=== PATIENT | female | born 2000 | race Caucasian/White ===

== ENCOUNTER → 2024-04-01 06:43 | Outpatient (REF) | payer BC, SELFPAY ==
[2024-04-01 07:12] LABS: % Basophils 0.7 % (0-2); % Eosinophils 3.6 % (0-6); % Immature Granulocytes 0.2 % (0-0.5); % Lymphocytes 33.4 % (20.5-51.1); % Monocytes 8.3 % (1.7-9.3); % Neutrophils 53.8 % (42.2-75.2); Absolute Eosinophils 0.2 10^3/uL (0-0.7); Absolute Monocytes 0.5 10^3/uL (0.1-0.6); Absolute Neutrophils 3.3 10^3/uL (1.4-6.5); Hematocrit 41.5 % (37.0-47.0); Hemoglobin 14.2 g/dL (12.0-16.0); Mean Corp Hgb Conc. 34.2 g/dL (33.0-37.0); Mean Corpuscular Volume 87.7 fL (81.0-99.0); Mean Platelet Volume 10.7 fL (7.4-10.4); Nucleated Red Blood Cells % 0 %; Platelet Count 190 10^3/uL (130-400); Red Blood Cell Count 4.73 10^6/uL (4.20-5.40); Red Cell Dist. Width 11.9 % (11.5-14.5)
[2024-04-01 07:43] LABS: ALT (SGPT) 17 U/L (0-35); AST (SGOT) 25 U/L (14-36); Albumin 4.4 g/dl (3.5-5.0); Alkaline Phosphatase 66 U/L (38-126); Blood Urea Nitrogen 13 mg/dl (7-17); Calcium 9.9 mg/dl (8.4-10.2); Carbon Dioxide 25 mmol/L (22-30); Chloride 106 mmol/L (98-107); Glucose 91 mg/dl (70-99); HDL Cholesterol 80 mg/dl; LDL Cholesterol, Calculated 57 mg/dl; Potassium 4.4 mmol/L (3.5-5.1); Sodium 138 mmol/L (135-145); Total Cholesterol 149 mg/dl (50-199); Total Protein 6.9 g/dl (6.3-8.2); Triglyceride 63 mg/dl (10-149); Very Low Density Lipoprotein 12 mg/dl (0-30); eGFR > 60.00
[2024-04-01 08:14] LABS: TSH Reflex To Free T4 1.28 uIU/ml (0.47-4.68)
== END ==
LOC: REG 06:43
PROVIDERS: ATTENDING PHYSICIAN Nurse Practitioner Family
DX: Z00.00 Encounter for general adult medical examination without abnormal findings (principal)
CPT/HCPCS: 36415; 80053; 80061; 84443; 85025

== ENCOUNTER → 2024-06-25 06:26 | Day surgery (SDC) | payer BC, SELFPAY | LOC: GI 06:26 | PROVIDERS: ATTENDING PHYSICIAN Internal Medicine; FAMILY PHYSICIAN Nurse Practitioner Family | DX: Z12.11 Encounter for screening for malignant neoplasm of colon (principal); D12.5 Benign neoplasm of sigmoid colon; R11.2 Nausea with vomiting, unspecified; K44.9 Diaphragmatic hernia without obstruction or gangrene; R11.15 Cyclical vomiting syndrome unrelated to migraine; Z86.010 Personal history of colon polyps | CPT/HCPCS: 45380; 43239; 88305; 88342 ==

== ENCOUNTER → 2024-12-31 09:59 | Outpatient (REF) | payer BC, SELFPAY ==
[2024-12-31 12:17] LABS: Beta HCG Quantitative 3.15 mIU/ml
== END ==
LOC: REG 09:59
PROVIDERS: ATTENDING PHYSICIAN Obstetrics & Gynecology Gynecology; FAMILY PHYSICIAN Nurse Practitioner Family
DX: N91.2 Amenorrhea, unspecified (principal)
CPT/HCPCS: 36415; 84702

== ENCOUNTER → 2025-01-02 07:06 | Outpatient (REF) | payer BC, SELFPAY ==
[2025-01-02 09:26] LABS: Beta HCG Quantitative < 2.39 mIU/ml
== END ==
LOC: REG 07:06
PROVIDERS: ATTENDING PHYSICIAN Obstetrics & Gynecology Gynecology; FAMILY PHYSICIAN Nurse Practitioner Family
DX: N91.2 Amenorrhea, unspecified (principal)
CPT/HCPCS: 36415; 84702

== ENCOUNTER → 2025-03-22 15:38 | Outpatient (REF) | payer BC, SELFPAY ==
[2025-03-22 16:36] LABS: Beta HCG Quantitative 96.43 mIU/ml
== END ==
LOC: REG 15:38
PROVIDERS: ATTENDING PHYSICIAN Obstetrics & Gynecology Gynecology; FAMILY PHYSICIAN Nurse Practitioner Family
DX: O20.0 Threatened abortion (principal)
CPT/HCPCS: 36415; 84702; 86900; 86901

== ENCOUNTER → 2025-03-24 14:44 | Outpatient (REF) | payer BC, SELFPAY ==
[2025-03-24 16:06] LABS: Beta HCG Quantitative 267.38 mIU/ml
== END ==
LOC: REG 14:44
PROVIDERS: ATTENDING PHYSICIAN Obstetrics & Gynecology Gynecology
DX: O20.0 Threatened abortion (principal)
CPT/HCPCS: 36415; 84702

== ENCOUNTER → 2025-03-26 16:55 | Outpatient (REF) | payer BC, SELFPAY ==
[2025-03-26 18:10] LABS: HCG, Serum Qualitative Screen Positive
[2025-03-26 18:55] LABS: Beta HCG Quantitative 776.85 mIU/ml
== END ==
LOC: REG 16:55
PROVIDERS: ATTENDING PHYSICIAN Obstetrics & Gynecology Gynecology; FAMILY PHYSICIAN Nurse Practitioner Family
DX: O20.0 Threatened abortion (principal)
CPT/HCPCS: 36415; 84702; 84703

== ENCOUNTER → 2025-04-01 16:42 | Outpatient (REF) | payer BC, SELFPAY ==
[2025-04-01 18:13] LABS: Beta HCG Quantitative 7165.20 mIU/ml
== END ==
LOC: REG 16:42
PROVIDERS: ATTENDING PHYSICIAN Obstetrics & Gynecology Gynecology; FAMILY PHYSICIAN Nurse Practitioner Family
DX: O02.1 Missed abortion (principal)
CPT/HCPCS: 36415; 84702

== ENCOUNTER → 2025-04-22 09:06 | Outpatient (REF) | payer BC, SELFPAY | LOC: CPAP 09:06 | PROVIDERS: ATTENDING PHYSICIAN Obstetrics & Gynecology | DX: Z34.90 Encounter for supervision of normal pregnancy, unspecified, unspecified trimester (principal); Z11.3 Encounter for screening for infections with a predominantly sexual mode of transmission | CPT/HCPCS: 87491; 87591 ==

== ENCOUNTER → 2025-04-26 16:47 | Outpatient (REF) | payer BC, SELFPAY ==
[2025-04-26 17:12] LABS: Urine Character Clear (Clear)
[2025-04-26 17:15] LABS: Hematocrit 37.5 % (37.0-47.0); Hemoglobin 13.4 g/dL (12.0-16.0); Mean Corp Hgb Conc. 35.7 g/dL (33.0-37.0); Mean Corpuscular Volume 84.1 fL (81.0-99.0); Nucleated Red Blood Cells % 0 %; Platelet Count 216 10^3/uL (130-400); Red Cell Dist. Width 11.7 % (11.5-14.5)
[2025-04-26 18:23] LABS: Hepatitis B Surface Antigen Negative (Negative)
[2025-04-26 18:27] LABS: Beta HCG Quantitative 206700.00 mIU/ml
[2025-04-26 18:41] LABS: Hepatitis C Antibody Negative (Negative)
[2025-04-27 10:16] LABS: Glycohemoglobin (HgbA1c) 5.0 % (4.0-5.6)
[2025-04-27 12:56] LABS: Syphilis/T. pallidum Ab Reflex Negative (Negative)
== END ==
LOC: REG 16:47
PROVIDERS: ATTENDING PHYSICIAN Obstetrics & Gynecology; FAMILY PHYSICIAN Nurse Practitioner Family
DX: Z32.01 Encounter for pregnancy test, result positive (principal)
CPT/HCPCS: 36415; 81003; 83036; 84702; 85025; 86704; 86706; 86762; 86780; 86803; 86850; 86900; 86901; 87086; 87340; 87389

== ENCOUNTER → 2025-05-20 16:38 | Outpatient (REF) | payer SELFPAY | LOC: PNTC 16:38 | PROVIDERS: ATTENDING PHYSICIAN Obstetrics & Gynecology | DX: Z36.89 Encounter for other specified antenatal screening (principal) | CPT/HCPCS: 36415 ==

== ENCOUNTER → 2025-06-30 07:34 | Outpatient (REF) | payer BC, SELFPAY | LOC: OIDL 07:34 | PROVIDERS: ATTENDING PHYSICIAN Student in an Organized Health Care Education/Training Program; FAMILY PHYSICIAN Nurse Practitioner Family | DX: Z34.92 Encounter for supervision of normal pregnancy, unspecified, second trimester (principal) | CPT/HCPCS: 36415; 82105 ==

== ENCOUNTER 2025-07-04 13:47 | Emergency (ER) | payer BC, SELFPAY ==
[2025-07-04 13:52] VITALS: BP 130/71
[2025-07-04 14:08] LABS: Hematocrit 36.0 % (37.0-47.0); Hemoglobin 12.9 g/dL (12.0-16.0); Mean Corp Hgb Conc. 35.8 g/dL (33.0-37.0); Mean Corpuscular Volume 84.3 fL (81.0-99.0); Nucleated Red Blood Cells % 0 %; Platelet Count 181 10^3/uL (130-400); Red Cell Dist. Width 12.5 % (11.5-14.5)
[2025-07-04 14:16] LABS: INR 0.97; PT 13.2 Sec (11.4-14.6)
[2025-07-04 14:26] LABS: ALT (SGPT) 18 U/L (0-35); AST (SGOT) 25 U/L (14-36); Albumin 4.2 g/dl (3.5-5.0); Alkaline Phosphatase 66 U/L (38-126); Blood Urea Nitrogen 11 mg/dl (7-17); Calcium 9.3 mg/dl (8.4-10.2); Carbon Dioxide 24 mmol/L (22-30); Chloride 105 mmol/L (98-107); Glucose 99 mg/dl (70-99); Potassium 3.5 mmol/L (3.5-5.1); Sodium 135 mmol/L (135-145); Total Protein 7.0 g/dl (6.3-8.2); eGFR > 60.00
[2025-07-04 14:39] LABS: Troponin I < 0.012 ng/ml
[2025-07-04 15:50] LABS: D-Dimer 1.12 ug/mlFEU (0.00-0.50)
[2025-07-04 17:43] VITALS: BP 124/80
--- NOTE | 2025-07-04 22:31 | ED.GENMED ---
History of Present Illness
General
Chief Complaint: Chest Pain
Source: patient
Exam Limitations: none
Time Seen by Provider: 07/04/25 14:59
Nursing documentation reviewed up to this point in time: agreed with
History of Present Illness
History of Present Illness:
Patient to ED with complaint of left sided chest pain. Pain started a few days ago but became much worse today. Denies n/v/diaphoresis. No aggravating or alleviating factors. No prior history of same. No leg pain or swelling. SHe is currently
18weeks . Brought to ED by spouse for eval.
Past History
Past History
ED Past Medical History: Psychiatric (Anxiety, depression,) and Other (Positional vertigo)
ED Past Surgical History: Other (Colonoscopy)
Patient has exhibited threatening behavior?: No
Social History
Tobacco: Non-smoker
Alcohol: None
Drug: None
Personal: Single
Living: with family
Employment: Employed (student at [employer])
Family History
Family History: Other ( mother does have a history of migraines); Negative Sudden
Review of Systems
Review of Systems
Allergies reviewed?: Yes
All Other Systems: ROS reviewed and negative except as documented in HPI and ROS
Constitutional: Reports no symptoms
EENT: Reports no symptoms
Respiratory: Reports no symptoms
Cardiac: Reports chest pain (Left sided chest pain)
ABD/GI: Reports no symptoms
: Reports no symptoms
Musculoskeletal: Reports no symptoms
Skin: Reports no symptoms
Neurological: Reports no symptoms
Psychiatric: Reports no symptoms
Phy Exam
General Physical Exam
General Presentation: well appearing and no apparent distress
General age: appears stated age
General Skin: warm and dry
General Habitus: normal
General Mental: alert
Cardiovascular Exam
Cardiovascular Exam: regular rate/rhythm and no edema
Pulmonary Exam
Pulmonary Exam: lungs clear, no respiratory distress and chest non tender
Musculoskeletal Exam
Musculoskeletal Exam: full ROM and neuro vasc intact
Skin Exam
Skin Exam: normal color, warm/dry and no rash
Psychiatric Exam
Psychiatric Exam: normal mood/affect
Scores
Heart Score for Chest Pain Patients
STEMI patient?: No
History: Slightly or Non-Suspicious
ECG: Normal
Age: </= 45 years
Risk Factors: No Risk Factors
Troponin: </= Normal Limit
Heart Score for Chest Pain Patients: 0
Heart Score Risk: 2.5% MACE over next 6 weeks
Course
Orders/Labs/Results
Orders:
Orders
07/04/25 13:49
Electrocardiogram (*1) Urgent
Reason for Study: Chest Pain
EKG- Treatment ONCE
07/04/25 13:58
Complete Blood Count/With Diff Urgent
Comprehensive Metabolic Panel Urgent
D-Dimer Urgent
Comment: ADD ON
Prothrombin Time Urgent
TSH Reflex To Free T4 Urgent
Troponin I Urgent
07/04/25 15:00
Add On- LAB Urgent
Tests Added?: ddimer
07/04/25 16:23
CT Chest PE Study Urgent
Comment:
Reason For Exam: left chest pain, elevated ddimer,
Abnormal Lab Results
07/04/25
13:58
WBC 11.3 H 10^3/uL
(4.8-10.8)
Hct 36.0 L %
(37.0-47.0)
MPV 10.5 H fL
(7.4-10.4)
Absolute Neuts (auto) 8.7 H 10^3/uL
(1.4-6.5)
Neutrophils % 77.0 H %
(42.2-75.2)
Lymphocytes % 17.0 L %
(20.5-51.1)
D-Dimer 1.12 H ug/mlFEU
(0.00-0.50)
07/04/25 13:58
07/04/25 13:58
Vital Signs
Initial and Last Documented VS:
Initial Vital Signs
Temp Pulse Resp BP Pulse Ox
98.6 F 79 17 130/71 99
07/04/25 13:52 07/04/25 13:52 07/04/25 13:52 07/04/25 13:52 07/04/25 13:52
Last Documented Vital Signs
Temp Pulse Resp BP Pulse Ox
98.6 F 78 18 124/80 97
07/04/25 13:52 07/04/25 17:43 07/04/25 17:43 07/04/25 17:43 07/04/25 22:34
*Radiology
Radiology exam reviewed: radiology read reviewed
*Pulse Oximetry
SaO2: 97
Oxygen Mode of Delivery: Room air
Patient hypoxic: no
*Critical Care Note
Total Time (30-74mins, 75-104mins- exclusive of procedures): Not Applicable
Update Note
Update Note:
Patient to ED with report of left chest pain. Hurts to take a deep breath. She is currently 18 weeks . VSS, she remains afebrile. Pulse ox 98% RA EKG NSR, troponin neg. DDimer 1.12. CT PE study completed. No evidence of PE. Will
discharge home and she iwll follow up with PCP, OB. Dr. Petersen consulted, agreeable to plan. Patient was given instrutions on s/s to return to ED. She remains awake and alert, in no distress.
ED Attending Note
-
Portions of this chart may have been created with voice recognition software.� Occasional wrong word or��sound alike� substitutions may have occurred due to the inherent limitations of voice recognition software.
Discharge Plan
Departure
Patient Disposition: Home (Routine Discharge)
Date of Disposition: 07/04/25
Time of Disposition: 18:55
Patient with high blood pressure during this ER visit?: No
Condition: Good
Covid-19: Not Applicable
Discharge Problem:
Chest pain
Instructions: Chest Pain PCP Follow Up
Prescriptions:
No Action
fluoxetine 10 MG capsule
10 mg PO DAILY
ibuprofen 600 MG tablet
600 mg PO Q6HPRN PRN (Reason: pain) Qty: 20 0RF
ondansetron 4 MG tablet,disintegrating
4 mg PO TIDPRN PRN (Reason: nausea/vomiting) Qty: 10 0RF
epinephrine [EpiPen] 0.3 MG/0.3/SYRINGE auto-injector
0.3 mg IM ONCE Qty: 2 0RF
Referrals:
Cindi Cutler CRNP [Family Provider, Internal Medicine]
Activity Restrictions/Additional Instructions:
Return to the emergency department for any changes in/worsening of your symptoms.
Interventions
Interventions:
*Risk Screen - Suicide Last Done: 07/04/25 13:54
*General Assessment Last Done: 07/04/25 13:54
*Neglect/Abuse Screening Last Done: 07/04/25 13:54
*ED COVID-19 Vaccine History Last Done: 07/04/25 13:54
*ED Influenza Vaccine History Last Done: 07/04/25 13:54
*Nursing Disposition Last Done: 07/04/25 19:11
ED- Cardiac Assessment Last Done: 07/04/25 14:38
Discharge Date and Time
Discharge Date/Time: 07/04/25 19:56
Print Language: NAMIBIAN
== END 2025-07-04 19:56 | disposition home or self-care (01) ==
LOC: EMR 13:47
PROVIDERS: Emergency Medicine; EMERGENCY PHYSICIAN Student in an Organized Health Care Education/Training Program; FAMILY PHYSICIAN Nurse Practitioner Family
DX: O99.891 Other specified diseases and conditions complicating pregnancy (principal); R07.9 Chest pain, unspecified; Z3A.18 18 weeks gestation of pregnancy
CPT/HCPCS: 99284; 71275; 80053; 84443; 84484; 85025; 85379; 85610; 93005; Q9967

== ENCOUNTER → 2025-08-05 09:29 | Outpatient (REF) | payer BC, SELFPAY | LOC: PNTC 09:29 | PROVIDERS: ATTENDING PHYSICIAN Obstetrics & Gynecology | DX: O36.8120 Decreased fetal movements, second trimester, not applicable or unspecified (principal) | CPT/HCPCS: 76815 ==

== ENCOUNTER → 2025-08-21 07:28 | Outpatient (REF) | payer BC, SELFPAY ==
[2025-08-21 09:39] LABS: Hematocrit 34.8 % (37.0-47.0); Hemoglobin 12.2 g/dL (12.0-16.0); Mean Corp Hgb Conc. 35.1 g/dL (33.0-37.0); Mean Corpuscular Volume 91.1 fL (81.0-99.0); Nucleated Red Blood Cells % 0 %; Platelet Count 161 10^3/uL (130-400); Red Cell Dist. Width 12.8 % (11.5-14.5)
[2025-08-21 10:37] LABS: 1 Hour after 50gm 54 mg/dl
== END ==
LOC: REG 07:28
PROVIDERS: ATTENDING PHYSICIAN Obstetrics & Gynecology; FAMILY PHYSICIAN Nurse Practitioner Family
DX: Z34.93 Encounter for supervision of normal pregnancy, unspecified, third trimester (principal)
CPT/HCPCS: 36415; 82950; 85025; 86780

== ENCOUNTER 2025-08-31 21:54 | Inpatient (IN) | payer BC, SELFPAY ==
[2025-08-31 15:44] VITALS: BP 109/63; BMI 25.1
[2025-08-31 16:09] LABS: Urine Character Clear (Clear)
[2025-08-31 16:25] LABS: Hematocrit 33.4 % (37.0-47.0); Hemoglobin 12.1 g/dL (12.0-16.0); Mean Corp Hgb Conc. 36.2 g/dL (33.0-37.0); Mean Corpuscular Volume 87.4 fL (81.0-99.0); Platelet Count 166 10^3/uL (130-400); Red Cell Dist. Width 12.4 % (11.5-14.5)
[2025-08-31] MEDS: LR 1000 IV ×2 (16:32→23:14)
[2025-08-31 16:38] LABS: ALT (SGPT) 40 U/L (0-35); AST (SGOT) 42 U/L (14-36); Albumin 3.7 g/dl (3.5-5.0); Alkaline Phosphatase 73 U/L (38-126); Blood Urea Nitrogen 10 mg/dl (7-17); Calcium 9.0 mg/dl (8.4-10.2); Carbon Dioxide 25 mmol/L (22-30); Chloride 105 mmol/L (98-107); Estimated Creatinine Clearance > 125 ml/min; Glucose 75 mg/dl (70-99); Potassium 3.9 mmol/L (3.5-5.1); Sodium 132 mmol/L (135-145); Total Protein 6.3 g/dl (6.3-8.2); eGFR > 60.00
[2025-08-31] MEDS: ADALAT 10 MG PO (18:50)
[2025-08-31] MEDS: CELESTONE SOLUSPAN 2 MG IM (22:57)
[2025-08-31] MEDS: MAGNESIUM SULFATE 100 IV (23:14)
[2025-08-31] MEDS: MAGNESIUM SULFATE 40 GRAM 1000 IV (23:36)
[2025-08-31] MEDS: PENICILLIN 110 UNITS IV (23:36)
== END 2025-09-01 07:32 | disposition short-term general hospital (02) | DRG 833 ==
LOC: LDRP 21:54
PROVIDERS: ADMITTING PHYSICIAN Obstetrics & Gynecology
DX: O60.02 Preterm labor without delivery, second trimester (principal); Z3A.26 26 weeks gestation of pregnancy
CPT/HCPCS: 59025; 80053; 81003; 82731; 85027; 87070; 87086; G0378